=== PATIENT | male | born 1995 | race African-American/Black ===

== ENCOUNTER 2018-07-28 08:27 | Emergency (ER) | payer OTHER ==
[2018-07-28 08:39] VITALS: BP 135/79; PULSE 90; RESP 18; TEMP 98.5
--- NOTE | 2018-07-28 10:48 | ED ---
General Adult HPI - General Chief complaint: Alcohol Stated complaint: ETOH Time Seen by Provider: 07/28/18 08:32 Source: patient, EMS, RN notes reviewed Mode of arrival: EMS - History of Present Illness Initial comments: 23-year-old male without any significant past medical history presents to the emergency department for a chief complaint of alcohol intoxication. Patient was brought in by EMS as he was found stumbling the streets this morning and urinating. Patient states he drank a fifth of vodka last night. States he drinks only about twice per week. Also states he was smoking marijuana which he smokes about every other day. Patient denying any complaints at this time. States he feels fine, just is drunk. Denies any injuries. Patient has no other complaints at this time including shortness of breath, chest pain, abdominal pain, nausea or vomiting, headache, or visual changes. - Related Data Home Medications Medication Instructions Recorded Confirmed Unable To Assess [Unable to Assess] 07/28/18 07/28/18 Review of Systems ROS Statement: Those systems with pertinent positive or pertinent negative responses have been documented in the HPI. ROS Other: All systems not noted in ROS Statement are negative. Past Medical History Past Medical History: No Reported History History of Any Multi-Drug Resistant Organisms: None Reported Past Surgical History: No Surgical Hx Reported Past Psychological History: No Psychological Hx Reported Smoking Status: Never smoker Past Alcohol Use History: Daily Past Drug Use History: Marijuana General Exam General appearance: alert, in no apparent distress, appears intoxicated (Patient does appear intoxicated but is pleasant without any neurologic deficits) Head exam: Present: atraumatic (No evidence of any head trauma), normocephalic, normal inspection Eye exam: Present: normal appearance, PERRL, EOMI, nystagmus (Fatigable horizontal nystagmus noted). Absent: scleral icterus, conjunctival injection, periorbital swelling ENT exam: Present: normal exam, mucous membranes moist Neck exam: Present: normal inspection, full ROM. Absent: tenderness, meningismus, lymphadenopathy Respiratory exam: Present: normal lung sounds bilaterally. Absent: respiratory distress, wheezes, rales, rhonchi, stridor Cardiovascular Exam: Present: regular rate, normal rhythm, normal heart sounds. Absent: systolic murmur, diastolic murmur, rubs, gallop, clicks Neurological exam: Present: alert, oriented X3, CN II-XII intact Psychiatric exam: Present: normal affect, normal mood Course Vital Signs 07/28/18 08:36 Temperature 98.5 F Pulse Rate 90 Respiratory 18 Rate Blood Pressure 135/79 O2 Sat by Pulse 98 Oximetry Medical Decision Making - Medical Decision Making 23-year-old male presents to the emergency department for chief complaint of alcohol intoxication. Patient was found stumbling history so was brought in by EMS. Patient is denying any complaints, just states he drank a fifth of vodka and is drunk. On exam patient is pleasant. No neurologic deficits. No evidence of trauma. Resting comfortably. Patient's BAT 0.274, sober around 1830. Disposition Clinical Impression: Alcoholic intoxication Disposition: HOME SELF-CARE Condition: Good Instructions (If sedation given, give patient instructions): Alcohol Intoxication (ED) Additional Instructions: Please follow up with primary care in 1-2 days. Please return if you have any worsening symptoms. Is patient prescribed a controlled substance at d/c from ED?: No Referrals: Helena Hall MD [STAFF PHYSICIAN] - 1-2 days Time of Disposition: 16:57
== END 2018-07-28 18:01 | disposition home or self-care (01) ==
LOC: EC 08:27
DX: F10.129 Alcohol abuse with intoxication, unspecified (principal)
CPT/HCPCS: 82075; 99284

== ENCOUNTER 2024-09-12 23:35 | Emergency (ER) | payer OTHER ==
--- NOTE | 2024-09-13 00:46 | ED ---
Wound/Laceration HPI - General Chief Complaint: Wound/Laceration Stated Complaint: Laceration Time Seen by Provider: 09/13/24 00:43 Source: patient, EMS, RN notes reviewed Mode of arrival: EMS Limitations: no limitations - History of Present Illness Initial Comments: 29-year-old male presenting for head injury. States he was playing basketball when he tripped and fell, striking his face on the ground. He has a laceration superior to the left upper lip through and through to the inner mucosa of the left upper lip. There is also an abrasion on his forehead and his left upper eyelid. Denies loss of consciousness or blood thinners. States he is not having any pain. Denies headache, vision changes, chest pain, shortness of breath, abdominal pain. - Related Data Home Medications Medication Instructions Recorded Confirmed No Known Home Medications 07/28/18 07/28/18 Allergies Allergy/AdvReac Type Severity Reaction Status Date / Time No Known Allergies Allergy Unverified 07/28/18 16:58 Review of Systems ROS Statement: Those systems with pertinent positive or pertinent negative responses have been documented in the HPI. ROS Other: All systems not noted in ROS Statement are negative. Past Medical History Past Medical History: No Reported History History of Any Multi-Drug Resistant Organisms: None Reported Past Surgical History: No Surgical Hx Reported Past Psychological History: No Psychological Hx Reported Smoking Status: Vaper Past Alcohol Use History: Daily Past Drug Use History: Marijuana General Exam Limitations: no limitations General appearance: alert, in no apparent distress Head exam: Present: normocephalic. Absent: atraumatic (There is a jagged 3 cm laceration superior to left upper lip and 3 cm through and through to left inner mucosa of left upper lip), normal inspection Eye exam: Present: normal appearance, PERRL, EOMI. Absent: scleral icterus, conjunctival injection, periorbital swelling ENT exam: Present: normal exam, mucous membranes moist Neurological exam: Present: alert, oriented X3, CN II-XII intact Psychiatric exam: Present: normal affect, normal mood Skin exam: Present: warm, dry, intact, normal color. Absent: rash Course Vital Signs 09/12/24 09/13/24 23:38 02:33 Temperature 98.2 F 98.1 F Pulse Rate 92 85 Respiratory 18 19 Rate Blood Pressure 114/100 115/81 O2 Sat by Pulse 96 96 Oximetry Procedures - Laceration Laceration #1 Consent Obtained: verbal consent Indication: laceration Site: face Size (cm): 3 Description: irregular Depth: [id number] Anesthetic Used: lidocaine 1%, without epi Anesthesia Technique: local infiltration Amount (mls): 3 Pre-repair: wound explored, irrigated extensively, deep structures intact Type of Sutures: nylon Size of Sutures: 5-0 Number of Sutures: 2 Technique: simple, interrupted Patient Tolerated Procedure: well, no complications Laceration #2 Consent Obtained: verbal consent Indication: laceration Site: lip Size (cm): 3 Description: linear Depth: [id number] Anesthetic Used: lidocaine 1%, without epi Anesthesia Technique: local infiltration Amount (mls): 2 Pre-repair: wound explored, irrigated extensively, deep structures intact Type of Sutures: vicryl Size of Sutures: 4-0 Number of Sutures: 2 Technique: simple, interrupted Patient Tolerated Procedure: well, no complications Medical Decision Making - Medical Decision Making Was pt. sent in by a medical professional or institution (Dr. PA, [facility], urgent care, hospital, or long-term...) When possible be specific @ -No Did you speak to anyone other than the patient for history (EMS, parent, family, police, friend...)? What history was obtained from this source @ -No Did you review nursing and triage notes (agree or disagree)? Why? @ -I reviewed and agree with nursing and triage notes Were old charts reviewed (outside hosp., previous admission, EMS record, old EKG, old radiological studies, urgent care reports/EKG's, long-term records)? Report findings @ -No old charts were reviewed Differential Diagnosis (chest pain, altered mental status, abdominal pain women, abdominal pain men, vaginal bleeding, weakness, fever, dyspnea, syncope, headache, dizziness, GI bleed, back pain, seizure, CVA, palpatations, mental health, musculoskeletal)? @ -Differential Musculoskeletal Muscular strain, contusion, ligament sprain, fracture, arthritis, septic arthritis, bursitis, cellulitis, muscle spasm, nerve compression, DVT, arterial occlusion, herpes zoster, electrolyte abnormality, tumor.... This is not meant to be in all inclusive list EKG interpreted by me (3pts min.). @ -None X-rays interpreted by me (1pt min.). @ -None done CT interpreted by me (1pt min.). @ -None done U/S interpreted by me (1pt. min.). @ -None done What testing was considered but not performed or refused? (CT, X-rays, U/S, labs)? Why? @ -None What meds were considered but not given or refused? Why? @ -None Did you discuss the management of the patient with other professionals (professionals i.e. Dr., PA, [facility], lab, RT, psych nurse, social work professor, district plant engineer, teacher, medical corps officer, human services case manager)? Give summary @ -No Was smoking cessation discussed for >3mins.? @ -No Was critical care preformed (if so, how long)? @ -No Were there social determinants of health that impacted care today? How? (Homelessness, low income, unemployed, alcoholism, drug addiction, transportation, low edu. Level, literacy, decrease access to med. care, [facility], rehab)? @ -No Was there de-escalation of care discussed even if they declined (Discuss DNR or withdrawal of care, Hospice)? DNR status @ -No What co-morbidities impacted this encounter? (DM, HTN, Smoking, COPD, CAD, Cancer, CVA, ARF, Chemo, Hep., AIDS, mental health diagnosis, sleep apnea, morbid obesity)? @ -None Was patient admitted / discharged? Hospital course, mention meds given and route, prescriptions, significant lab abnormalities, going to OR and other pe rtinent info. @ -Discharge. 29-year-old male presenting for lip laceration. No loss of consciousness or blood thinners. Patient is currently asymptomatic. Tetanus was updated. Wound was thoroughly irrigated and sutures were performed. Advised to follow-up in 5 days for suture removal. Appropriate return precautions and supportive care discussed. Case was discussed with my ED attending Dr. Byrd Undiagnosed new problem with uncertain prognosis? @ -No Drug Therapy requiring intensive monitoring for toxicity (Heparin, Nitro, Insulin, Cardizem)? @ -No Were any procedures done? @ -Yes, sutures to lip were performed Diagnosis/symptom? @ -Lip laceration Acute, or Chronic, or Acute on Chronic? @ -Acute Uncomplicated (without systemic symptoms) or Complicated (systemic symptoms)? @ -Uncomplicated Side effects of treatment? @ -No Exacerbation, Progression, or Severe Exacerbation? @ -No Poses a threat to life or bodily function? How? (Chest pain, [place], [place], pneumonia, PE, COPD, DKA, ARF, appy, cholecystitis, CVA, Diverticulitis, Homicidal, Suicidal, threat to staff... and all critical care pts) @ -No Disposition Clinical Impression: Lip laceration Disposition: HOME SELF-CARE Condition: Stable Instructions (If sedation given, give patient instructions): Laceration (ED) Additional Instructions: Follow-up in 5 days for suture removal. Please return to the Emergency Department if symptoms worsen or any other concerns. Is patient prescribed a controlled substance at d/c from ED?: No Referrals: None,Stated [Primary Care Provider] - 1-2 days Time of Disposition: 02:22
[2024-09-13] MEDS: DIPH,PERTUS(ACELL)TETVAC-LF 0.5 ML VIAL IM ONE (00:47)
[2024-09-13] MEDS: LIDOCAINE 1% INJ 10MG/ML (20 ML MDV) SQ ONE (00:47)
[2024-09-13 02:35] VITALS: BP 115/81; PULSE 85; RESP 19; TEMP 98.1
== END 2024-09-13 02:35 | disposition home or self-care (01) ==
LOC: EC 23:35
DX: S01.511A Laceration without foreign body of lip, initial encounter (principal); F17.290 Nicotine dependence, other tobacco product, uncomplicated; Z23 Encounter for immunization; W01.0XXA Fall on same level from slipping, tripping and stumbling without subsequent striking against object, initial encounter; Y93.67 Activity, basketball
CPT/HCPCS: 99282; 12014; 90471; 90715; J2003